=== PATIENT | male | born 1990 | race Hispanic/Latino ===

== ENCOUNTER 2021-09-09 15:16 | Emergency (ER) | payer MEDICARE ==
[2021-09-09 15:40] VITALS: BP 115/78
--- NOTE | 2021-09-09 16:38 | XRay Report ---
Right hand, 3 views HISTORY: Injury COMPARISON: None FINDINGS: There is an acute fracture of the midportion of the right fourth metacarpal shaft. One cortex width u lnar displacement of the distal fracture fragment with moderate apex dorsal angulation and one half s haft width dorsal displacement. No additional acute fracture. There is remote fracture deformity of t he third metacarpal. Soft tissue swelling of the dorsal hand. No soft tissue gas. IMPRESSION: Acute displaced and angulated right fourth metacarpal fracture. Signer Name: Gómez Duncan MD Signed: 09/09/2021 4:33 PM Workstation Name: [id number]
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
[2021-09-09] MEDS ORDERED: HYDROcodone/ACETAMINOPHEN 10-325MG TAB PO ONE (17:08)
== END 2021-09-09 17:52 | disposition home or self-care (01) ==
LOC: ED 15:16
DX: S62.339A Displaced fracture of neck of unspecified metacarpal bone, initial encounter for closed fracture (principal); F17.200 Nicotine dependence, unspecified, uncomplicated; F10.20 Alcohol dependence, uncomplicated; Y04.0XXA Assault by unarmed brawl or fight, initial encounter; Y93.89 Activity, other specified; Y92.89 Other specified places as the place of occurrence of the external cause; Y99.8 Other external cause status
CPT/HCPCS: 99283; 99284